=== PATIENT | female | born 1960 | race Caucasian/White ===

== ENCOUNTER 2023-03-10 12:48 | Emergency (ER) | payer BC, SELFPAY ==
[2023-03-10 12:52] VITALS: BP 135/77; PULSE 82; RESP 18; TEMP 37.3; O2SAT 95; BMI 26.6
--- NOTE | 2023-03-10 13:08 | ED_ITS ---
HPI - Abdominal Pain General Chief Complaint: Abdominal Pain Stated Complaint: Abdominal pain Time Seen by Provider: 03/10/23 12:49 History of Present Illness HPI narrative: 62-year-old female presents with some tightness across her abdomen. She started on early Saturday morning having some epigastric pain after pizza and beer. The patient reports that she felt upset her stomach. She had pain in her stomach. The pain in the stomach has slowly resolved but she has a tightness across her abdomen that is bothering her. Feels it is mostly around her umbilicus and to the right and left side. May have been a little bit higher in her mid epigastrium as well. Patient denies fever, denies jaundice, denies any prior symptoms similar. She has a history of reflux but that does not seem similar. She was on famotidine for period of time for that. No chest pain, no breathing difficulty, no fevers of significance. 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 Review of Systems Status of ROS Reports: 6 or more systems reviewed and unremarkable except as noted in History and below Narrative Patient does report that her urine has been darker than normal. PFSH PFSH Social History Smoking Status: Never smoker Do you use any of these nicotine containing products: None Second hand tobacco smoke exposure: No How often do you have a drink containing alcohol: 2-4 times a month How many standard drinks containing alcohol do you have on a typical day: 1 or 2 How often do you have six or more drinks on one occasion: Never AUDIT-C Alcohol total score: 2 Non-prescribed substance use: denies use service: No Exam Narrative: Exam Narrative: Objective: Patient's vital signs show temperature 99.2? otherwise unremarkable In general she is in no apparent distress, no scleral icterus, throat is clear Neck is supple Pulse regular Abdomen nontender no marked rebound or peritonitis she does have some very minimal right upper quadrant tenderness to palpation. No palpable mass. Extremities are no edema neurologic nonfocal Skin periphery is warm and dry. Const: Vital Signs, click to edit/add: Vital Signs - 24 hr 03/10/23 12:52 03/10/23 13:46 03/10/23 14:19 Temperature 99.2 F Pulse Rate 86 80 Pulse Rate [Pulse Oximeter] 82 Respiratory Rate 18 Blood Pressure [Ri ght Upper Arm] 135/77 Pulse Oximetry 95 96 96 Oxygen Delivery Me thod Room Air 03/10/23 14:30 Temperature Pulse Rate 80 Pulse Rate [Pulse Oximeter] Respiratory Rate Blood Pressure [Ri ght Upper Arm] Pulse Oximetry 95 Oxygen Delivery Me thod Course Vital Signs Vital signs: Initial Vital Signs Temperature 99.2 F 03/10/23 12:52 Temperature Source Temporal Artery Scan 03/10/23 12:52 Pulse Rate 82 03/10/23 12:52 Pulse Rhythm Regular 03/10/23 12:52 Respiratory Rate 18 03/10/23 12:52 Blood Pressure 135/77 03/10/23 12:52 Blood Pressure Mean 96 03/10/23 12:52 Blood Pressure Position Supine 03/10/23 12:52 Pulse Oximetry 95 03/10/23 12:52 Oxygen Delivery Method Room Air 03/10/23 12:52 Vital Signs Temperature 99.2 F 03/10/23 12:52 Pulse Rate 82 03/10/23 12:52 Respiratory Rate 18 03/10/23 12:52 Blood Pressure 135/77 03/10/23 12:52 Pulse Oximetry 95 03/10/23 12:52 Oxygen Delivery Method Room Air 03/10/23 12:52 Temperature 99.2 F 03/10/23 12:52 Pulse Rate 80 03/10/23 14:30 Respiratory Rate 18 03/10/23 12:52 Blood Pressure 135/77 03/10/23 12:52 Pulse Oximetry 95 03/10/23 14:30 Oxygen Delivery Method Room Air 03/10/23 12:52 Medications Administered Medications: Discontinued Medications Generic Name Dose Route Start Last Admin Trade Name Freq PRN Reason Stop Dose Admin Sodium Chloride 500 mls @ 500 mls/hr 03/10/23 12:55 03/10/23 14:30 0.9 % Sodium Chloride 500 Ml IV 03/10/23 13:54 Infused .Q1H ONE Infusion MDM - Abdominal Pain MDM Narrative Medical decision making narrative: 62-year-old female with couple day history of abdominal discomfort, now with abdominal tightness. Patient's symptoms seem very consistent with a biliary colic type situation, and I think an ultrasound of her right upper quadrant be appropriate she last ate at about 8 this morning. Will also check electrolytes labs liver function profile, give some IV fluid and disposition pending her findings above. If her white count would be normal and gallstones noted may need surgical consultation as an outpatient, if she has evidence of acute cholecystitis she may need more prompt attention. Disposition pending findings above. Will also for completeness get an EKG and a troponin. Her EKG by my read shows normal sinus rhythm no acute ST T wave changes. Addendum 2:23 p.m., patient's CRP is a little bit elevated at 4.3, her troponin is negative, urinalysis shows a few white cells and red cells but and a few bacteria, will wait for urine culture. Liver function profile was unremarkable, ER profile is unremarkable, total bili was a little elevated 1.9. Patient has a benign-appearing abdomen at this point I think simply observation be appropriate turgor certainly she could have passed a gallbladder stone or had some kid gallbladder sludge, I think more likely she had a little and intestinal colic. But I think at this point I would recommend observation. We discussed doing if further imaging such as CT scanning and we declined to do so given that she is improving and able to eat and drink well and seems to be getting better. She will follow-up with their changes or concerns would recommend she see her [facility] doctor the next 3-4 days for recheck. Lab Data Labs: Lab Results 03/10/23 03/10/23 03/10/23 Range/Units 13:10 13:39 13:51 WBC 4.74 (4.50-11.00) K/uL RBC 5.19 (4.00-5.20) m/uL Hgb 14.8 (12.0-16.0) gm/dL Hct 43.4 (33.0-51.0) % MCV 84 (80-100) fL MCH 29 (26-34) pg MCHC 34 (32-36) gm/dL RDW Coeff of [place] 11.9 (11.5-15.5) % Plt Count 231 (140-440) K/uL Neut % (Auto) 67.3 (42.0-72.0) % Lymph % (Auto) 26.4 (20-44) % Boyd % (Auto) 5.5 (0.0-11.0) % Eos % (Auto) 0.4 (0.0-7.0) % Baso % (Auto) 0.4 (0.0-3.0) % Neut # (Auto) 3.19 (1.7-7.0) K/uL Lymph # (Auto) 1.25 (0.90-2.90) K/uL Boyd # (Auto) 0.30 (0.00-0.90) K/UL Eos # (Auto) 0.02 (0.00-0.50) K/uL Baso # (Auto) 0.02 (0.00-0.30) K/uL Abs Immat Gran (auto) 0.00 (0.00-0.30) K/uL Imm/Tot Granulo (auto) 0.0 % Sodium 138 (135-149) mmol/L Potassium 3.6 (3.6-5.1) mmol/L Chloride 105 (96-114) mmol/L Carbon Dioxide 23 (20-32) mmol/L Anion Gap 10 (7-15) mEq/L BUN 15 (7-30) mg/dL Creatinine 0.6 (0.5-1.5) mg/dL Estimated Creat Clear 58.84 Estimated GFR 101 ml/min Glucose 110 (60-115) mg/dL Calcium 8.5 (8.4-10.6) mg/dL Total Bilirubin 1.9 H (0.1-1.5) mg/dL Direct Bilirubin 0.3 (0.0-0.5) mg/dL AST 35 (12-35) U/L ALT 20 (4-35) U/L Alkaline Phosphatase 64 (40-150) U/L Troponin I < 0.01 L (0.01-0.04) ng/mL C-Reactive Protein 4.3 H (0.5-1.0) mg/dL Total Protein 6.8 (6.0-8.3) g/dL Albumin 4.3 (3.3-5.0) g/dL Amylase 70 (18-89) U/L Urine Color Yellow (Yellow) Urine Appearance Clear (Clear) Urine pH 6.0 (5.0-8.5) Ur Specific [place] <= 1.005 (1.000-1.030) Urine Protein Negative (Negative) Urine Glucose (UA) Negative (Negative) Urine Ketones Negative (Negative) Urine Blood 2+ A (Negative) Urine Nitrite Negative (Negative) Urine Bilirubin Negative (Negative) Urine Urobilinogen 0.2 (0.2-1.0) Ur Leukocyte Esterase Negative (Negative) Urine RBC 0-2 (0-2) Urine WBC 0-2 (0-5) Urine WBC Clumps None (None) Ur Squamous Epith Cells Few (None-Few) Urine Bacteria Few A (None) Lab Acknowledgement Test Added Discharge Plan Discharge Clinical Impression: Abdominal pain Patient Disposition: Home w/ Parent or Adult Condition: Stable Additional Instructions: Observation, Tylenol as needed, recheck with regular doctor in 3-4 days, return to the ED if worsening or recurrence. Your ultrasound today look reassuring as did her lab studies. We will recheck these if there is problems or concerns we have continued problems return feel free to come back to the ER for re- evaluation. Activity Level: Light activity Discharge Diet: Full Liquid Diet Detail: Advance diet as tolerated to a low-fat diet Stand Alone Forms: [employer] Info Instructions
--- NOTE | 2023-03-10 13:09 | CRLHL7_ITS ---
For Patients: As a result of the Cures Act, medical imaging exams and procedure reports are released immediately into your electronic medical record. You may view this report before your referring provider. If you have questions, please contact your health care provider. INDICATION: Right upper quadrant pain and vomiting COMPARISON: None. TECHNIQUE: Bro-scale and color ultrasound of the right upper quadrant to include the liver, gallbladder (or gallbladder fossa), biliary tree, pancreatic head, and right kidney. FINDINGS: Liver: Increased hepatic echogenicity and coarsened echotexture. No mass. Gallbladder: Normal. Distention: Normal. Wall: Normal thickness. Stones: None. Sludge: None. Pericholecystic inflammation/fluid: None. Sonographic Polo`s sign: Negative. Bile ducts: Not dilated. The common bile duct measures 7 mm proximally and tapers to 5 mm. Pancreatic head: Normal. Right Kidney: Renal length: 11.2 cm Parenchyma: Normal thickness and normal echogenicity. Cyst: None Mass: None Calculi: None Urinary tract: Not dilated. RUQ Ascites: None. Aorta: No proximal aneurysm. IMPRESSION: Hepatic steatosis. Dictated by Trish Dias MD @ 03/10/2023 2:57:40 PM (Electronically Signed)
[2023-03-10] MEDS: 0.9 % SODIUM CHLORIDE 500 ML 500 ML IV (13:20)
[2023-03-10 13:22] LABS: Basophils Absolute Auto 0.02 K/uL (0.00-0.30); Basophils Percent Auto 0.4 % (0.0-3.0); Eosinophils Absolute Auto 0.02 K/uL (0.00-0.50); Eosinophils Percent Auto 0.4 % (0.0-7.0); Hematocrit 43.4 % (33.0-51.0); Hemoglobin* 14.8 gm/dL (12.0-16.0); Lymphocytes Absolute Auto 1.25 K/uL (0.90-2.90); Lymphocytes Percent Auto 26.4 % (20-44); Mean Corpuscular HGB Conc 34 gm/dL (32-36); Mean Corpuscular Hemoglobin 29 pg (26-34); Mean Corpuscular Volume 84 fL (80-100); Monocytes Percent Auto 5.5 % (0.0-11.0); Neutrophils Absolute Auto 3.19 K/uL (1.7-7.0); Neutrophils Percent Auto 67.3 % (42.0-72.0); Platelet Count* 231 K/uL (140-440); RDW Coefficient of Variation % 11.9 % (11.5-15.5); Red Blood Count 5.19 m/uL (4.00-5.20); White Blood Count* 4.74 K/uL (4.50-11.00)
[2023-03-10 13:23] LABS: Slide Review Reflex No
[2023-03-10 13:35] LABS: Albumin* 4.3 g/dL (3.3-5.0); Chloride* 105 mmol/L (96-114); Sodium* 138 mmol/L (135-149)
[2023-03-10 13:36] LABS: Potassium* 3.6 mmol/L (3.6-5.1)
[2023-03-10 13:37] LABS: Amylase* 70 U/L (18-89); Creatinine* 0.6 mg/dL (0.5-1.5); Est. Creatinine Clearance* 58.84; Estimated Glomerular Filt Rate 101 ml/min
[2023-03-10 13:38] LABS: Anion Gap 10 mEq/L (7-15); Aspartate Amino Transferase* 35 U/L (12-35); Bilirubin Direct* 0.3 mg/dL (0.0-0.5); Bilirubin Total* 1.9 mg/dL (0.1-1.5); Blood Urea Nitrogen* 15 mg/dL (7-30); Carbon Dioxide* 23 mmol/L (20-32); Total Protein* 6.8 g/dL (6.0-8.3)
[2023-03-10 13:39] LABS: Alanine Aminotransferase* 20 U/L (4-35); Alkaline Phosphatase* 64 U/L (40-150); Calcium* 8.5 mg/dL (8.4-10.6); Glucose* 110 mg/dL (60-115)
[2023-03-10 13:41] LABS: C Reactive Protein* 4.3 mg/dL (0.5-1.0)
[2023-03-10 13:46] VITALS: PULSE 86; O2SAT 96
[2023-03-10 13:59] LABS: Troponin I* < 0.01 ng/mL (0.01-0.04)
[2023-03-10 14:07] LABS: Appearance Urine Clear (Clear); Bilirubin Urine Negative (Negative); Blood Urine 2+ (Negative); Color Urine Yellow (Yellow); Glucose Urine Negative (Negative); Ketones Urine Negative (Negative); Leukocyte Esterase Urine Negative (Negative); Nitrite Urine Negative (Negative); Protein Urine Negative (Negative); Specific Gravity Urine <= 1.005 (1.000-1.030); Urobilinogen Urine 0.2 (0.2-1.0)
[2023-03-10 14:19] VITALS: PULSE 80; O2SAT 96
[2023-03-10 14:19] LABS: RBC Urine 0-2 (0-2); Squamous Epithelial Cell Urine Few (None-Few); WBC Urine 0-2 (0-5)
[2023-03-10 14:20] LABS: Bacteria Urine Few
[2023-03-10 14:30] VITALS: PULSE 80; O2SAT 95
== END 2023-03-10 14:42 | disposition home or self-care (01) ==
PROVIDERS: Emergency Provider Family Medicine; PCP Family Medicine
DX: R10.9 Unspecified abdominal pain (principal)
CPT/HCPCS: 36415; 76705; 80048; 80076; 81001; 82150; 84484; 85025; 86140; 87086; 93005; 96360; 99284; J7030

== ENCOUNTER 2024-12-13 18:07 | Emergency (ER) | payer OTHER, SELFPAY ==
--- OUTSIDE RECORDS SUMMARY | 2024-11-09 08:40 | XMS_ITS | Encounter Summary ---
Author Organization [facility] Address [address] [place] [address] Care Team Providers Care [employer] Academic Coach Name Role Phone Toy Rodriguez M.D. Primary Care Provider Reason for Referral * Outpatient (Routine) - Closed Specialty Diagnoses / Procedures Referred By Charlotte t Referred To Contact Otorhinolaryngology Diagnoses Eustachian Tube Disorder Right Toy Rodriguez M.D. [address] [place] [phone] Phone: tel: fax: [facility] Referral ID Status Reason Start Date Expiration Date V isits Requested Visits Authorized [id number] Closed Specialty Services Required 11/09/2024 05/11/2026 1 1 Reason for Visit * Reason Comments Other Check right ear. Ear fills full and itches. Has been going on for a while.Has used Flonase and is currently on Prednisone. Referral to ENT. Encounter Details Date Type Department Care Team (Late st Contact Info) Description 11/09/2024 8:40 AM CDT Office Visit Department of Family Medicine, [facility], in [place], [place] [address] [place] [phone] Toy Rodriguez M.D. [address] [place] [address] Eustachian Tube Disorder Right (Primary Dx); Hypertension Essential Primary; Maintenance Health Adult Social History Tobacco Use Types Packs/Day Years Used Date Smoking Tobacco: Never Smokeless Tobacco: Never Tobacco Cessation:Counseling Given: Not Answered Alcohol Use Standard Drinks/Week Comments Yes 0 (1 standard drink = 0.6 oz pur e alcohol) Very little [facility] Utilities Answer Date Recorded In the past 12 months has e electric, gas, oil, or water company threatened to shut off services in your home? No 06/16/2024 Hunger Vital Sign Answer Date Recorded Within the past 12 months, y ou worried that your food would run out before you got the money to buy more. Never true 06/17/19 25 Within the past 12 months, t he food you bought just didn't last and you didn't have money to get more. Never true 06/16/2024 PRAPARE - Transportation Answer Date Re corded In the past 12 months, has l ack of transportation kept you from medical appointments or from getting medications? No 05/20 In the past 12 months, has l ack of transportation kept you from meetings, work, or from getting things needed for daily living? No 06/16/2024 Depression Answer Date Recor ded PHQ-9 Total Score (max 27) 2 09/07 Housing Stability Answer Date Recorded What is your living situation today? 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 - 11/09/2024 8:40 AM CDT DATE OF VISIT: 11/09/2024 SUBJECTIVE CHIEF COMPLAINT / REASON FOR VISIT Evita Johnson is a 63 y.o. female who presents for evaluation of Other (Check right ear. Ear fills full and itches. Has been going on for a while.Has used Flonase and is currently on Prednisone. Referral to ENT.). The patient verbally consented to an audio recording of their visit to assist with the completion of documentation. 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 Right ear fullness and hearing changes - Intermittent fullness in the right ear for approximately one year - No associated pain - Occasional itchiness in the right ear - Slight decrease in hearing on the right side, uncertain about the extent - Symptoms fluctuate, with episodes coming and going over the past couple of months - No sinus headache or pressure - No pain associated with the ear fullness Response to symptomatic treatments - Flonase and antihistamines, including Sudafed, used for symptom management - Perception that Sudafed may have worsened symptoms - Recent course of prednisone prescribed at urgent care, taken for the past few days - Some improvement in pressure and itchiness with prednisone, but persistent fullness Hypertension and antihypertensive medication intolerance - Hypertension managed with hydrochlorothiazide - Missed hydrochlorothiazide dose the previous day due to travel - Previous adverse reaction to amlodipine, causing significant fatigue OBJECTIVE VITAL SIGNS BP 142/83 (BP Location: Right arm, Patient Position: Sitting, Cuff Size: Regular) Pulse 69 Temp36 ??C (Temporal) Resp 16 Physical Exam Constitutional Appearance: She is well-developed. HENT Head: Normocephalic and atraumatic. Right Ear: External ear normal. Left Ear: External ear normal. Ears: Comments: Moderate fluids on the left ear. Small to moderate fluids on the right ear Nose: Nose normal. Eyes Conjunctiva/sclera: Conjunctivae normal. Pupils: Pupils are equal, round, and reactive to light. Cardiovascular Rate and Rhythm: Normal rate and regular rhythm. Heart sounds: Normal heart sounds. Pulmonary Effort: Pulmonary effort is normal. No respiratory distress. Breath sounds: Normal breath sounds. Abdominal General: Bowel sounds are normal. There is no distension. Palpations: Abdomen is soft. There is no mass. Tenderness: There is no abdominal tenderness. There is no guarding. Musculoskeletal General: Normal range of motion. Cervical back: Normal range of motion and neck supple. Skin General: Skin is warm and dry. Neurological Mental Status: She is alert and oriented to person, place, and time. Deep Tendon Reflexes: Reflexes are normal and symmetric. Psychiatric Behavior: Behavior normal. ASSESSMENT/ PLAN Eustachian Tube Disorder Right Orders: [facility] Otorhinolaryngology - General consult (clinic); Future Audiology evaluation; Future Intermittent fullness in the right ear for approximately one year, occasionally affecting the left ear. Symptoms include fullness, itchiness, and mild hearing issues without pain. Persistent symptomsdespite antihistamines, Flonase, and Sudafed. Prednisone provides some relief for pressure and itchiness, but fullness persists. Examination reveals fluid in both ears, more in the left ear, despite the right ear being symptomatic. Likely allergy-related. Fluid resolution may take up to three months, requiring aggressive management. - Increase Flonase to twice daily. - Start Claritin once daily, increase to twice daily if needed. - Continue Sudafed if tolerated, discontinue if it causes irritation. - Order ENT referral for further evaluation and potential fluid drainage. - Recommend normal saline nasal spray and use of a humidifier at home. - Order audiology evaluation to assess hearing and fluid status. Hypertension Essential Primary Hypertension managed with hydrochlorothiazide. She did not take hydrochlorothiazide the previous day due to travel and concerns about frequent urination. Amlodipine was previously prescribed but discontinued due to fatigue and tiredness. Experiencing stress from work responsibilities, potentially im pacting blood pressure control. - Continue hydrochlorothiazide as prescribed. - Add amlodipine to allergy list due to adverse reaction of fatigue and tiredness. - Monitor blood pressure regularly. [facility] Adult Flu shot was given today documented in this encounter Plan of Treatment Upcoming Encounters Date Type Department Care Team (Late st Contact Info) Description 12/14/2024 1:00 PM CDT Appointment Department of Radiology in [place], [place] [address] [place] [phone] Mare Ferrara P.A.-C. 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 [address], [place] [phone] Scheduled Orders Name Type Priority Associated Diagnoses Orde r Schedule Audiology evaluation Audiology Routine Eustachian Tube Disorder Right Expected: 11/09/2024, Expires: 02/08/2026 Scheduled Referrals Name Type Priority Associated Diagnoses Order Schedule [facility] Otorhinolaryngology - General consult (clinic) Outpatient Referral Routine Eustachian Tube Disorder Right Expected: 11/09/2024, Expires: 02/08/2026 documented as of this encounter Visit Diagnoses Diagnosis Eustachian Tube Disorder Right- Primary Hypertension Essential Primary Maintenance Health Adult documented in this encounter Additional Health Concerns Assessment Noted Time PHQ-9 Depression Total Score: 2 09/08/19 25 8:38 AM CDT documented as of this encounter Care Teams [employer] Academic [employer] Relationship Specialty Start Date End Date Toy Rodriguez M.D. NPKaleigh: [phone] [address] [place] [phone] PCP - General Family Medicine 06/10/24 documented as of this encounter
--- OUTSIDE RECORDS SUMMARY | 2024-11-30 15:00 | XMS_ITS | Encounter Summary ---
Author Organization [facility] Address [address] [place] [address] Care Team Providers Care Partner Integration Planner Name Role Phone Toy Rodriguez M.D. Primary Care Provider [phone] Reason for Referral * Outpatient (Routine) - Authorized Specialty Diagnoses / Procedures Referred By Contac t Referred To Contact Otorhinolaryngology Mare Ferrara P.A.-C. [address] [place] [phone] Phone: tel: fax: [facility] Region Referral ID Status Reason Start Date Expiration Date V isits Requested Visits Authorized [id number] Authorized 11/30/2024 06/01/2026 1 1 Scheduling Instructions Please schedule in [place] AFTER CT completed- scope and review CT * MRI/CAT/PET Scan (Routine) - Authorized Specialty Diagnoses / Procedures Referred By Contac t Referred To Contact Radiology Diagnoses Obstruction Nasal Dysfunction Eustachian Tube Right Procedures CT Sinuses without IV Contrast Mare Ferrara P.A.-C. [address] [place] [phone] Phone: tel: fax: [facility] Region Referral ID Status Reason Start Date Expiration Date V isits Requested Visits Authorized [id number] Authorized 11/30/2024 03/02/2026 1 1 Reason for Visit * Reason Comments Advice Only * Outpatient (Routine) - Closed Specialty Diagnoses / Procedures Referred By Charlotte hoover Referred To Contact Otorhinolaryngology Diagnoses Eustachian Tube Disorder Right Toy Rodriguez M.D. [address] [place] [address] Phone: tel: fax: [facility] Region Referral ID Status Reason Start Date Expiration Date V isits Requested Visits Authorized [id number] Closed Specialty Services Required 11/09/2024 05/11/2026 1 1 Encounter Details Date Type Department Care Team (Latest Contact Info) Description 11/30/2024 3:00 PM CDT Comprehensive Visit Department of Otorhinolaryngology in [place], [place] [address] [place] [address] Mare Ferrara P.A.-C. [address] [place] [phone] Obstruction Nasal (Primary Dx); Dysfunction Eustachian Tube Right; Dysphonia; Snoring; Rhinitis Allergic Social History Tobacco Use Types Packs/Day Years Used Date Smoking Tobacco: Never Smokeless Tobacco: Never Alcohol Use Standard Drinks/Week Comments Yes 0 (1 standard drink = 0.6 oz pur e alcohol) Very little [facility] Utilities Answer Date Recorded In the past 12 months has e [email or web address], gas, oil, or water [employer] threatened to shut off services in your [...] your living situation today? 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 - 11/30/2024 3:00 PM CDT SUBJECTIVE CHIEF COMPLAINT/REASON FOR VISIT Fzobk-enrnlfh-ndqw-left ear plugging and fullness, nasal and throat symptoms as well REFERRING PROVIDER Toy Rodriguez M.D. HISTORY OF PRESENT ILLNESS Evita Johnson is seen today in consultation for evaluation of her ears. Since approximately December of 2023 she has had intermittent fullness and a plugging sensation or pressure in the right ear. At times this is present in the left but the right is typically the most bothersome side. She declines actual ear pain or otorrhea but often feels as if there is fluid in the middle ear that needs to be released or drained. If she performs Valsalva type maneuvers or yawns it will temporarilybut not completely improve her right ear symptoms. It has been increasing in the last month or 2. She has been utilizing Flonase regularly for a month, also utilizes oral antihistamine daily and Sudafed prn. These slightly improvement never resolve her symptoms. She has seen an repair armature winder in the past and recalls testing positive to environmental allergens including dust and mold. She feels over the last year, especially over the last couple months, her chronic nasal obstruction and congestion has also increased. Her snoring is increased in she wonders if she may have obstructive sleep apnea. She has gained some weight in his attempting to lose weight in order to improve her quality of sleep.No history of surgery to the ears, nose, or sinuses. 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 Her thyroid hormone levels have since been followed and have been regulated. The following portions of the patient's history were reviewed: allergies, current medications, problem list, family history, medical history, social history and surgical history OBJECTIVE PHYSICAL EXAMINATION GENERAL: Patient is alert, oriented, and in no acute distress. Respirations are quiet and unlabored. Vocal quality is normal. HEAD: Normocephalic and atraumatic. Skin on head and neck normal. EARS: External ears normal bilaterally. External ear canals normal bilaterally. Tympanic membranes are normal bilaterally with clear middle ears. NOSE: External nasal exam normal. Intranasal exam reveals midline septum. No polyps or drainage or observed, she does have turbinate hypertrophy of inferior turbinates bilaterally. [facility] or [facility]oscopy is not available today. ORAL: Oral cavity, including tongue and floor of mouth, is without lesions. She has large base of tongue and low hanging flaccid soft palate slightly narrowing the oropharyngeal airway. OROPHARYNX: Tonsils are surgically absent. NASOPHARYNX: Normal. NECK: Palpation of neck reveals no cervical adenopathy. She does have some asymmetry of the scar tissue from her thyroid surgery. ASSESSMENT / PLAN #1 Obstruction Nasal #2 Dysfunction Eustachian Tube Right #3 Dysphonia #4 Snoring #5 Rhinitis Allergic We discussed involved anatomy and findings. At this point we are going to proceed with a sinus CT and she will follow up with me in the [place] office thereafter to review the CT and undergo nasal endoscopy and laryngoscopy. We will then come up with a plan. She can continue on her current medications in the meantime but I will not add on anything new at this time. She is in agreement with this plan. Mare Ferrara P.A.-C. documented in this encounter Plan of Treatment Upcoming Encounters Date Type Department Care Team (Late st Contact Info) Description 12/14/2024 1:00 PM CDT Appointment Department of Radiology in [place], [place] [address] [place] [phone] Mare Ferrara P.A.-C. [address] [place] [phone] 12/28/2024 1:30 PM OVERHEAD FOREMAN Office Visit Department of Otorhinolaryngology in [place], [place] [address] [place] [address] Mare Ferrara P.A.-C. [address] [place] [phone] Scheduled Orders Name Type Priority Associated Diagnoses Orde r Schedule CT Sinuses without IV Contrast Imaging RAD - Routine (most inpatients and all outpatients) Obstruction Nasal Dysfunction Eustachian Tube Right Expected: 11/30/2024, Expires: 03/02/2026 Scheduled Referrals Name Type Priority Associated Diagnoses Order Schedule Otorhinolaryngology office visit (clinic) Outpatient Referral Routine Expected: 11/30/2024, Expires: 03/02/2026 documented as of this encounter Visit Diagnoses Diagnosis Obstruction Nasal- Primary Dysfunction Eustachian Tube Right Dysphonia Snoring Rhinitis Allergic documented in this encounter Additional Health Concerns Assessment Noted Time PHQ-9 Depression Total Score: 2 09/08/19 25 8:38 AM CDT documented as of this encounter Care Teams Partner Integration Planner Relationship Specialty Start Date End Date Toy Rodriguez M.D. [address] [place] [phone] PCP - General Family Medicine 06/10/24 documented as of this encounter
--- OUTSIDE RECORDS SUMMARY | 2024-12-13 18:09 | XMS_ITS | Clinical Summary ---
Author Organization [facility] Address [address] [place] [address] Care Team Providers Care Sample Hand Name Role Phone Toy Rodriguez M.D. Primary Care Provider [phone] Source Comments Patient records contain information from all sites at [facility]. For routine questions regarding patient records, call [phone] during business hours, M-F 8:00 AM - 5:00 PM Central Time. Record requests for emergency care only can be directed to [phone] at any time.[facility] Allergies Active Allergy Reactions Criticality Noted Date Comments Amlodipine Other (see comments) 11/09/2024 Fatigue Medications * This document contains information received from the source organization and may not represent a complete record from that organization. hydroCHLOROthia zide (HydroDiuril) 25 mg tablet Take 1 tablet (25 mg total) by mouth daily. 90 tablet 3 11/13/2024 9:32 AM CDT 5 Active levothyroxine 112 mcg tablet Take 1 tablet (112 mcg total) by mouth daily before morning meal. 90 tablet 3 11/13/2024 9:32 AM CDT 5 Active citalopram (CeleXA) 20 mg tablet Take 1 and one-half tablet by mouth every morning. 135 tablet 3 11/13/2024 9:32 AM CDT 5 Active cholecalciferol (Vitamin D3) 125 mcg (5,000 Unit) capsule Take 1 capsule by mouth daily. 4 Active omega-3 fatty acids-fish oil 300-1,000 mg per capsule Take 1 capsule by mouth daily. 4 Active famotidine (Pepcid) 20 mg tablet Take 1 tablet (20 mg total) by mouth 2 (two) times a day. 60 tablet 3 09/17/2024 1:23 PM CDT 5 Active fluticasone propionate (Flonase) 50 mcg/actuation nasal spray Administer 2 sprays into each nostril 2 (two) times a day. 16 g 11 11/13/2024 9:32 AM CDT 5 Active loratadine (Claritin) 10 mg tablet Take 1 tablet (10 mg total) by mouth daily as needed for allergies. 90 tablet 3 5 Active Encounters * This document contains information received from the source organization and may not represent a complete record from that organization. Date Type Department Care Team Description 11/30/2024 3:00 PM CDT Comprehensive Visit Department of Otorhinolaryngology in [address] [phone] Mare Ferrara P.A.-C. Obstruction Nasal (Primary Dx); Dysfunction Eustachian Tube Right; Dysphonia; Snoring; Rhinitis Allergic 11/09/2024 8:40 AM CDT Office Visit Department of Family Medicine, [facility], in [address] [phone] Toy Rodriguez M.D. Eustachian Tube Disorder Right (Primary Dx); Hypertension Essential Primary; Maintenance Health Adult 10/02/2024 Results Follow-Up Department of Family Medicine, [facility], in [address] [phone] Toy Rodriguez M.D. S-TSH (Thyroid-Stimulat ing Hormone - Sensitive), Basic Metabolic Panel, Glucose, Fasting, Lipid Panel 09/25/2024 3:33 PM CDT - 09/25/2024 11:59 PM CDT Hospital Encounter Department of Laboratory Medicine in [address] [phone] Toy Rodriguez M.D. Hypothyroidism; Hypertension Essential Primary; Maintenance Health Adult; Hyperlipidemia Discharge Disposition: Home or Self Care 09/25/2024 3:30 PM CDT Nurse Only Department of [facility], [facility], in [address] [phone] Toy Rodriguez M.D. Van Esch, Norma K, L.P.NShayla Nurse Visit (Blood pressure check) 09/25/2024 3:19 PM CDT - 09/25/2024 3:32 PM CDT Hospital Encounter Department of Laboratory Medicine in [address] [phone] Toy Rodriguez M.D. High Risk Medication Discharge Disposition: Home or Self Care 09/25/2024 Results Follow-Up Department of [facility], [facility], in [address] [phone] Toy Rodriguez M.D. ECG 12 Lead 09/25/2024 Clinical Communication Department of [facility], [facility], in [address] [phone] Toy Rodriguez M.D. from Last 3 Months Immunizations Immunization Administration Dates Next Due DTaP (Infanrix, [employer]edia) 04/14/2008 HepB Pediatric/Adolescent 04/09/2005,03/23/2004, 01/29/2003 HepB, Unspecified 04/09/2005,03/23/2004,01/30/20 03 Influenza, Injectable, Quadrivalent 10/19,11/13/2018,11/28/2017,2016,12/08/2014 Influenza, Seasonal, Injectable 12/06/2013,12/03,01/25/2012 PCV20 06/22/2024 RZV (SHINGRIX) 05/09/2018,05/09/2018,01/28/2018 Td Preservative Free (TENIVA C, DECAVAC) 02/18/1997 Tdap 08/25/2018,04/14/2008 influenza trivalent vaccine (6 months and older)(PF) 11/08/2023 influenza vaccine quad (FLUZONE/FLUARIX) (6 months and older)(PF) 11/15/2022,12/21/2021,12/01/2020,2019,12/19/2016,12/01/2015 Social History Tobacco Use Types Packs/Day Years Used Date Smoking Tobacco: Never Smokeless Tobacco: Never Tobacco Cessation:Counseling Given: Not Answered Alcohol Use Standard Drinks/Week Comments Yes 0 (1 standard drink = 0.6 oz pur e alcohol) Very little [facility] Utilities Answer Date Recorded In the past 12 months has e electric, gas, oil, or water company threatened to shut off services in your home? No 06/16/2024 Hunger Vital Sign Answer Date Recorded Within the past 12 months, y ou worried that your food would run out before you got the money to buy more. Never true 06/17/19 Within the past 12 months, t he [...] your living situation today? 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 Gender Identity Female 11/07/2021 3:35 PM CDT Sexual Orientation Straight 11/07/2021 3: 38 PM CDT Last Filed Vital Signs Vital Sign Reading Time Taken Comments Blood Pressure 142/83 11/09/2024 8:47 AM CDT Pulse 69 11/09/2024 8:47 AM CDT Temperature 36 C (96.8 F) 11/09/2024 8:42 AM CDT Respiratory Rate 16 11/09/2024 8:42 AM CDT Oxygen Saturation - - Inhaled Oxygen Concentration - - Weight 90.4 kg (199 lb 3 oz) 09/07/2024 8:17 AM CDT Height 171.1 cm (5' 7.36) 06/22/2024 7:24 AM CD T Body Mass Index 30.86 06/22/2024 7:24 AM CDT Plan of Treatment Upcoming Encounters Date Type Department Care Team (Late st Contact Info) Description 12/14/2024 1:00 PM CDT Appointment Department of Radiology in [place], [place] [address] [phone] Mare Ferrara P.A.-C. [address] [phone] 12/28/2024 1:30 PM STAFF PSYCHOLOGIST Office Visit Department of Otorhinolaryngology in [place] [address] [place] [phone] Mare Ferrara P.A.-CShayla [address] [place] [phone] Health Maintenance Due Date Last Done Comments CT Colonography 1960 Colonoscopy 1960 FIT 1960 Hepatitis C Screening 1960 COVID-19 Vaccine ( season) 2024 11/08/2023, 12/14/2022, 01/03/2022, Additional history exists Influenza Vaccine (#1) 2024 , 11/15/2022, 12/21/2021, Additional history exists Office Visit for Blood Pressure Check / Re-check 02/08/2025 11/09/2024 Mammogram 05/25/2025 05/25/2024, 03/21, 04/03/2023, Additional history exists Thyroid Stimulating Hormone (TSH) test for thyroid function 09/25/2025 09/25/2024, 09/30/2023, 07/22/2023, Additional history exists Cologuard 10/19/2025 10/19/2022 Colorectal Cancer Screening 10/19/2025 Cervical/Vaginal Cancer Screening 01/09/2027 01/09/2022 (Performed elsewhere) Fasting Glucose for Diabetes Screening 09/26/2027 09/25/2024, 10/02/2023, 07/22/2023, Additional history exists DTaP,Tdap,and Td Vaccines (4 - Td or Tdap) 08/25/2028 08/25/2018, 04/14/2008, 04/14/2008, Additional history exists Lipid (Cholesterol) Screening 09/25/2029 09/25/2024, 10/02/2023, 02/15/2023, Additional history exists Hepatitis B Vaccines Completed 04/09/2005, 04/09/2005, 03/23/2004, Additional history exists Zoster Vaccines Completed 05/09/2018, 04/19, 01/28/2018 Pneumococcal vaccine (50+ years) Completed 06/22/2024 Depression Screening (Annual PHQ-2) Completed 09/07/2024, 06/22/2024 IPV Vaccines Aged Out No longer eligi ble based on patient's age to complete this topic Procedures Procedure Name Priority Date/Time Associated Diagnosis Comments LIPID PANEL, S Routine 09/25/2024 3:37 PM CDT Hyperlipidemia GLUCOSE, FASTING, S/P Routine 09/25/2024 3:37 PM CDT Maintenance Health Adult BASIC METABOLIC PANEL, S/P Routine 09/25/2024 3:37 PM CDT Hypertension Essential Primary THYROID-STIMULATING HORMONE-SENSITIVE (S-TSH) Routine 09/25/2024 3:37 PM CDT Hypothyroidism ECG Routine 09/25/2024 3:30 PM CDT High Risk Medication BI BREAST SCREENING BILATERAL WITH TOMOSYNTHESIS RAD - Routine (most inpatients and all outpatients) 05/25/2024 3:10 PM CDT Screening Mammogram Breast Cancer from Last 3 Months or Most Recently Relevant to Health Maintenance Results * (ABNORMAL) Lipid Panel (09/25/2024 3:37 PM CDT) Triglycerides 176(H) mg/dL 09/25/2024 6:13 PM CDT OWAT Comment: ----REFERENCE VALUE---- Normal: <150 mg/dL Borderline High: 150-199 mg/dL High: 200-499 mg/dL Very High: > or =500 mg/dL Cholesterol, Total 227(H) mg/dL 2024 6:13 PM CDT OWAT Comment: ----REFERENCE VALUE---- Desirable: < 200 mg/dL Borderline High: 200 - 239 mg/dL High: > or = 240 mg/dL Cholesterol, LDL, Calculated 151(H) mg/dL 09/25/2024 6:13 PM CDT OWAT Comment: ----REFERENCE VALUE---- Desirable: <100 mg/dL Above Desirable: 100-129 mg/dL Borderline High: 130-159 mg/dL High: 160-189 mg/dL Very High: >=190 mg/dL ----ADDITIONAL INFORMATION---- LDL cholesterol calculated using the Mccollum/NIH equation. Cholesterol, HDL 44(L) >=50 mg/dL 09/26/19 25 6:13 PM CDT OWAT Cholesterol, Non-HDL, Calculated 183(H) mg/dL 09/25/2024 6:13 PM CDT OWAT Comment: ----REFERENCE VALUE---- Desirable: <130 mg/dL Above Desirable: 130-159 mg/dL Borderline High: 160-189 mg/dL High: 190-219 mg/dL Very High: > or =220 mg/dL Fasting (8 HR or more) No 09/25/2024 3:37 PM CDT OWAT Blood (Blood, Venous) 09/25/2024 3:37 PM CDT 09/25/2024 5:47 PM CDT Toy Rodriguez M.D. LAB BLOOD ADD-ON Final Resul t [facility] [address] [place] [address], [facility] in [place] [address] [place] [address] * S-TSH (Thyroid-Stimulating Hormone - Sensitive) (09/25/2024 3:37 PM CDT) TSH, Sensitive 2.0 0.3 - 4.2 mIU/L 09/25/2024 6:14 PM CDT OWAT Blood (Blood, Venous) 09/25/2024 3:37 PM CDT 09/25/2024 5:47 PM CDT us Toy Rodriguez M.D. LAB BLOOD ADD-ON Final Resul t Performing Organization Address City/[facility]/ZIP Co de Phone Number [facility] [address] [place] [address], [place] [facility] in [place] [address] [place] [address] * Glucose, Fasting (09/25/2024 3:37 PM CDT) Glucose, P 84 70 - 100 mg/dL 09/25/2024 6:12 PM CDT OWAT Blood (Blood, Venous) 09/25/2024 3:37 PM CDT 09/25/2024 5:47 PM CDT us Toy Rodriguez M.D. LAB BLOOD NON ADD-ON Final R esult [facility] [address] [place] [address], [facility] in [place] [address] [place] [address] * Basic Metabolic Panel (09/25/2024 3:37 PM CDT) Potassium, P 4.0 3.6 - 5.2 mmol/L 09/25/2024 6:13 PM CDT OWAT Sodium, P 141 135 - 145 mmol/L 09/25/2024 6:13 PM CDT OWAT Chloride, P 102 98 - 107 mmol/L 09/25/2024 6:13 PM CDT OWAT Bicarbonate, P 27 22 - 29 mmol/L 09/25/2024 6:13 PM CDT OWAT Anion Gap, P 12 7 - 15 09/25/2024 6:13 PM CDT OWAT BUN (Blood Urea Nitrogen), P 12 6 - 21 mg/dL 09/25/2024 6:13 PM CDT OWAT Creatinine 0.80 0.59 - 1.04 mg/dL 09/25/2024 6:13 PM CDT OWAT Estimated GFR (eGFR) 83 >=60 mL/min/BSA 09/25/2024 6:13 PM CDT OWAT Comment: Estimated GFR calculated using the 2020 CKD_EPI creatinine equation. Calcium, Total, P 9.6 8.8 - 10.2 mg/dL 09/25/2024 6:13 PM CDT OWAT Glucose, P CANCELED mg/dL 09/25/2024 5:48 PM CDT OWAT Comment: Duplicate test request. Result canceled by the ancillary. Blood (Blood, Venous) 09/25/2024 3:37 PM CDT 09/25/2024 5:47 PM CDT us Toy Rodriguez M.D. LAB BLOOD ADD-ON Final Resul t [facility] [address] [place] [address], [place] OWAT [facility] in [place] [address] [place] [address] * ECG 12 Lead (09/25/2024 3:30 PM CDT) Ventricular Rate ECG/Min 64 BPM MUSE TX Interval 182 ms MUSE QRSD Interval 92 ms MUSE QT Interval 430 ms MUSE QTC Interval 443 ms MUSE P [place] 57 degrees MUSE R [place] 11 degrees MUSE T Wave [place] 13 degrees MUSE 09/25/2024 3:30 PM CDT 09/25/2024 3:33 PM CDT Impressions MUSE - 09/25/2024 3:33 PM CDT Normal sinus rhythm Slight ST elevation in Septal leads When compared with ECG of 22-Jun-2024 08:25, No significant change in data has occurred Reviewed by RENATO Ng Narrative Procedure Note Joe Oliveira M.D., Ph.D. - 09/25/2024 IMPRESSION: Normal sinus rhythm Slight ST elevation in Septal leads When compared with ECG of 22-Jun-2024 08:25, No significant change in data has occurred Reviewed by RENATO Ng us Toy Rodriguez M.D. ECG ORDERABLES Final Result MUSE NA * BI Breast Screening Bilateral with Tomosynthesis (05/25/2024 3:10 PM CDT) Anatomical Region Laterality Modality Breast, Breast Imaging RST L OS, Breast Imaging ARZ LOS, Breast Imaging FLA LOS Bilateral Mammography Addenda Addendum by Edwin Maldonado M.D. on 05/26/2024 12:49 PM CDT ADDENDUM: AMENDMENT TO ADD COMPARISON EXAMS COMPARISON EXAMS: Bilateral screening mammograms dating back to 01/28/2017 FINDINGS: When compared to prior exams, no suspicious findings are evident. RECOMMENDATIONS: Annual Screening Mammogram ASSESSMENT: BI-RADS: 1: Negative. Impressions 05/26/2024 11:22 AM CDT Incomplete. Comparison images needed. RECOMMENDATION: Comparison With Prior Exam(s) Comparison with prior mammograms is requested and will be arranged by the Department of Radiology. If prior mammograms cannot be obtained, annual mammography is recommended. ASSESSMENT: BI-RADS: 0 - Incomplete: Need Prior Mammograms for Comparison. Narrative 05/26/2024 11:22 AM CDT EXAM: BI BREAST SCREENING BILATERAL WITH TOMOSYNTHESIS Current study was evaluated with a Computer Aided Detection (CAD) system. INDICATION: Screening mammogram. COMPARISON: No prior exams were available for comparison. DENSITY: b. There are scattered areas of fibroglandular density. FINDINGS: No mammographic findings of malignancy. However, comparison with prior exams would be helpful for interpretation. Procedure Note Edwin Maldonado M.D. - 05/26/2024 EXAM: BI BREAST SCREENING BILATERAL WITH TOMOSYNTHESIS Current study was evaluated with a Computer Aided Detection (CAD) system. INDICATION: Screening mammogram. COMPARISON: No prior exams were available for comparison. DENSITY: b. There are scattered areas of fibroglandular density. FINDINGS: No mammographic findings of malignancy. However, comparisonwith prior exams would be helpful for interpretation. IMPRESSION: Incomplete. Comparison images needed. RECOMMENDATION: Comparison With Prior Exam(s) Comparison with prior mammograms is requested and will be arranged by theDepartment of Radiology. If prior mammograms cannot be obtained, annualmammography is recommended. ASSESSMENT: BI-RADS: 0 - Incomplete: Need Prior Mammograms forComparison. Bonnie Kidd M.D. IM BI PROCEDURES Edite d Result - Final from Last 3 Months or Most Recently Relevant to Health Maintenance Insurance [facility] Care Teams Sample Hand Relationship Specialty Start Date End Date Toy Rodriguez M.D. [address] [place] [phone] PCP - General Family Medicine 06/10/24
--- OUTSIDE RECORDS SUMMARY | 2024-12-13 18:10 | XMS_ITS | Clinical Summary ---
Author Organization [facility] Address [address] [place] [id number] Care Team Providers Care Door Builder Name Role Phone Michael Toy Brooks [facility] [place] Care Provider Allergies No known active allergies Medications fluticasone (50 mcg per actuation) nasal solution (FLONASE)Indicat ions:Nasal congestion Inhale 2 Sprays to both nostrils once daily. Taking PRN 3 Active miscellaneous medical supply (Blood Pressure Cuff) miscIndications: HTN (hypertension) As directed. Home BP cuff 1 Each 4 Active Blood Pressure Test Kit-Large (Wireless BP Monitor) kit For home use as directed. 1 Each 08/02/2023 3:09 PM CDT 4 Active citalopram (CELEXA) 20 mg tabletIndication s:Anxiety Take 1 Tablet (20 mg) by mouth once daily in the morning. 90 Tablet 3 03/26/2024 10:10 AM THERAPIST RRT 4 Active hydroCHLOROthiaz eduar 25 mg tabletIndication s:HTN (hypertension) Take 1 Tablet (25 mg) by mouth once daily. 90 Tablet 3 03/26/2024 10:10 AM THERAPIST RRT 4 Active levothyroxine (SYNTHROID) 112 mcg tabletIndication s:Hypothyroidism , unspecified type Take 1 Tablet (112 mcg) by mouth before breakfast. 90 Tablet 3 03/25/2024 1:13 PM THERAPIST RRT 4 Active cholecalciferol (Dialyvite Vitamin D) 5,000 unit capsuleIndicatio ns:Vitamin D deficiency Take 1 Capsule (5,000 units) by mouth once daily. 90 Capsule 1 03/25/2024 1:13 PM THERAPIST RRT 4 Active fish oil-omega-3 fatty acids 300-1,000 mgIndications:Hy perlipidemia with target LDL less than 100 Take 1 Capsule by mouth once daily. 90 Capsule 1 04/06/2024 1:57 PM THERAPIST RRT 4 Active famotidine (PEPCID) 40 mg tablet Take 20 mg by mouth two times daily. Active Active Problems Problem Noted Date Diagnosed Date Pap smear for cervical cancer screening 01/26/20 Overview (01/25/2022): 12/2021 NIL/HPV Negative Provider plan: I would do another speculum exam in 6 months to see if the appearance of the cervix has changed at all. 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 is using decongestant medication and antihistamines but not helping./x 2 months) 11/04/2024 Travel from Last 3 Months Immunizations Immunization Administration Dates Next Due AMB Influenza, IIV4 PF (=>6 mos Flulaval,Fluzone Fluarix)(Flu Clinic Only) 12/19/2016 COVID-19 vaccine (Pfizer-Bio NTech 30mcg/0.3mL) 12YO+ BIVALENT PF, MDV 01/03/2022 COVID-19 vaccine (Pfizer-Bio NTech 30mcg/0.3mL) 12YO+ RIGO-SUCROSE PF, MDV 08/07/2021 COVID-19 vaccine (Pfizer-Bio NTech 30mcg/0.3mL) PF, MDV 05/31/2020,05/10/2020 DTaP 04/14/2008 Hepatitis B (Adult) 04/09/2005,03/23/2004,2002 Hepatitis B (Peds) 04/09/2005,03/23/2004, 003 Hepatitis B, Unspecified 04/09/2005,03/23/2004,1 04/01/2002 Influenza, IIV3 (Age >=3 years) 12/06/2013,12/03,01/25/2012 Influenza, IIV4 11/15/2022,,12/01/2020,2019,10/28/2019,11/13/2018,11/28/2017,1 Influenza, IIV4 (=>6mos) MDV 10/29/2019, 11/13/2018,11/28/2017,2016,12/08/2014 Td, Preservative Free (age > = 7 Years) 02/18/1997 Tdap 08/25/2018,04/14/2008 Zoster (Shingrix-RZV, recombinant) 05/09/2018,,01/28/2018 Family History Medical History Relation Name Comments Hypertension Brother 2 Childhood respiratory disease Daughter 1 Childhood asthma Good Health Daughter 3 Good Health Daughter 4 Cancer Father anal Heart Disease Father aneurysm Hypertension Father Arthritis Mother Cancer-breast Mother Cancer-breast Sister 4 Good Health Son 2 Relation Name Status Comments Brother 1 Alive Brother 2 Daughter 1 Alive Daughter 2 Alive Daughter 3 Daughter 4 Father Alive heart Mother Alive Sister 1 Alive Sister 2 Alive Sister 3 Alive Sister 4 Son 1 Alive Son 2 Social History Tobacco Use Types Packs/Day Years Used Date Smoking Tobacco: Never Smokeless Tobacco: Never Tobacco Cessation:Counseling Given: Yes Alcohol Use Standard Drinks/Week Comments Yes 0 (1 standard drink = 0.6 oz pur e alcohol) 2/week PHQ-2 Answer Date Recorded PHQ-2 TOTAL SCORE 0 08/16/2022 Social Connections Answer Date Recorded Do you often feel lonely or isolated from those around you? 0 09/30/2023 Financial Resource Strain Answer Date R ecorded Difficulty of Paying Living Expenses 3 09/30/2023 Difficulty of Paying Living Expenses Not on file 09/30/2023 Food Insecurity Answer Date Recorded Do you worry your food will run out before you are able to buy more? 1 09/30/2023 Transportation Needs Answer Date Record ed Does lack of transportation keep you from medica l appointments? 1 09/30/2023 Does lack of transportation keep you from work, meetings or getting things that you need? 1 09/30/2023 Housing Stability Answer Date Recorded What is your housing situation today? 1 09/30/2023 Utilities Answer Date Recorded Do you have trouble paying f or utilities (for example, heat, electricity, water, phone)? 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 Not on file Not o n file Obstetrics History Para Term AB IAB SAB Ectopic Multiple Livin g Live Births 3 3 3 0 0 0 0 0 3 Date Outcome GA Total Labor Labor/2nd/3rd Weight Sex Type Anes PTL Beatris A1 A5 Name Clin Term Term Term Last Filed Vital Signs Vital Sign Reading Time Taken Comments Blood Pressure 142/81 11/04/2024 4:08 PM CDT Pulse 72 11/04/2024 4:08 PM CDT Temperature 36.2 C (97.1 F) 11/04/2024 4:08 PM CDT Respiratory Rate 16 11/04/2024 4:08 PM CDT Oxygen Saturation 97% 11/04/2024 4:08 PM CDT Inhaled Oxygen Concentration - - Weight 91.6 kg (202 lb) 09/30/2023 1:01 PM CDT Height 170.8 cm (5' 7.25) 09/30/2023 1:01 PM CD T Body Mass Index 31.4 09/30/2023 1:01 PM CDT Plan of Treatment Upcoming Encounters Date Type Department Care Team (Late st Contact Info) Description 12/14/2024 1:00 PM CDT Appointment [facility] [address] [place] [address] Health Maintenance Due Date Last Done Comments Hepatitis B series for 19+ ( 2 of 3 - 19+ 3-dose series) 05/07/2005 04/09/2005, 04/09/2005, 04/09/2005, Additional history exists Pneumococcal series for age 50+ (1 of 1 - PCV) 2010 Depression screening for age 12+ 08/17/2023 08/16/2022, 12/15/2020, 05/06/2020, Additional history exists Mammogram for age 45-75 04/03/2024 04/03/19 24, 2021, 12/20/2020, Additional history exists BMI (ht and wt on same day) for age 18+ 09/29/2024 09/30/2023, 08/16/2022, 09/15/2021, Additional history exists Influenza Vaccine (#1) 2024 , 12/21/2021, 12/01/2020, Additional history exists Fecal testing sDNA-FIT (Orient guard) for age 45-75 10/19/2025 10/19/2022 Pap test for age 21-65 12/21/2026 , 12/21/2021, 09/17/2018, Additional history exists Tetanus booster 08/25/2028 08/25/2018, 03/22, 02/18/1997 Lipids for age 45-75 10/01/2028 10/02/2023, 02/15/2023, 12/21/2021, Additional history exists RSV vaccine for adults or (1 - 1-dose 75+ series) 12/28/2035 Zoster (shingles) series for age 50+ Completed 05/09/2018, 05/06/2018, 01/28/2018 Hepatitis C screening for ag e 18-79 Completed 11/25/2019 HIV for age 15-65 Completed 08/16/2022 Procedures Procedure Name Priority Date/Time Associated Diagnosis Comments LIPID PANEL W REFLEX MEASURED LDL Routine 10/02/2023 8:46 AM CDT Well woman exam XR MAMMO NEERAJ BILAT SCREEN Routine 04/03/2023 10:57 AM THERAPIST RRT Encounter for screening mammogram for malignant neoplasm of breast SDNA-FIT EXTERNAL (COLOGUARD) Routine 10/19/2022 12:45 PM CDT Colon cancer screening LC HIV-1/O/2, 4TH GENERATION Routine 08/16/2022 1:39 PM CDT Screening for HIV (human immunodeficiency virus) HPV HIGH RISK Routine 12/21/2021 12:40 PM CDT Screening for cervical cancer ANTI HCV Routine 11/25/2019 11:31 AM CDT Need for hepatitis C screening test from Last 3 Months or Most Recently Relevant to Health Maintenance Results * (ABNORMAL) LIPID PANEL W REFLEX MEASURED LDL (10/02/2023 8:46 AM CDT) CHOLESTEROL,TOTAL 235(H) 100 - 199 mg/dL 10/02/2023 9:56 AM T [facility] Comment: Cholesterol, Total Reference Ranges Desirable <200 mg/dL Borderline 200-239 mg/dL High >=240 mg/dL TRIGLYCERIDES 151(H) <150 mg/dL 10/02/2023 9:56 AM [facility] HDL CHOLESTEROL 41 >40 mg/dL 9:56 AM [facility] NON-HDL CHOLESTEROL 194(H) <145 mg/dl 10/02/2023 9:56 AM [facility] CHOL/HDL RATIO 5.73(H) <4.50 10/02/2023 9:56 AM CDT [facility] LDL CHOLESTEROL 164(H) <=130 mg/dL 10/02/2023 9:56 AM CDT [facility] VLDL CHOLESTEROL 30 <=30 mg/dL 10/02/2023 9:56 AM CDT [facility] PROVIDER ORDERED STATUS RANDOM 10/02/2023 9:56 AM CDT [facility] Blood BLOOD SPECIMEN / Unknown Venipuncture / Unknown 10/02/2023 8:46 AM CDT 10/02/2023 8:46 AM CDT us Jacki Triplett MD CHEMISTRY Final Result [facility] [address] [place] [address] * XR MAMMO NEERAJ BILAT SCREEN (04/03/2023 10:57 AM THERAPIST RRT) Anatomical Region Laterality Modality BREASTS, Breast Left, Breast Right Bilateral Mammography Impressions 04/03/2023 11:11 AM THERAPIST RRT There is no radiographic evidence for malignancy. Recommend annual mammograms. MAMMOGRAM ASSESSMENT: ACR 1 Negative PATIENTS: You will also receive a letter with your examination results in an easy to read format. If you have questions about your results, please contact your referring provider. Narrative 04/03/2023 11:11 AM THERAPIST RRT For Patients: As a result of the Century Cures Act, medical imaging exams and procedure reports are released immediately into your electronic medical record. You may view this report before your referring provider. If you have questions, please contact your health care provider. XR MAMMO NEERAJ BILAT SCREEN [[id number]] CLINICAL HISTORY: This is an asymptomatic 62 y.o. patient. INDICATION FOR EXAM: Mammogram Screening. TECHNIQUE: CC & MLO views were obtained. This study was evaluated with the assistance of Computer-Aided Detection. Breast Tomosynthesis was used in interpretation. COMPARISON FILM: Yes 12/27/21 [facility] FINDINGS: The breasts have scattered areas of fibroglandular density. There are no dominant masses, suspicious micro calcifications or areas of architectural distortion. Jacki Triplett MD MAMMO Final Result * SDNA-FIT EXTERNAL (COLOGUARD) (10/19/2022 12:45 PM CDT) NONINV COLON CA DNA+OCC BLD SCRN STL-IMP Negative Negative 10/26/2022 2:47 AM CDT [facility] (CLIA #:[id number]) Comment: NEGATIVE TEST RESULT. A negative Cologuard result indicates a low likelihood that a colorectal cancer (CRC) or advanced adenoma (adenomatous polyps with more advanced pre-malignant features) is present. The chance that a person with a negative Cologuard test has a colorectal cancer is less than 1 in 1500 (negative predictive value >99.9%) or has an advanced adenoma is less than 5.3% (negative predictive value 94.7%). These data are based on a prospective cross-sectional study of 10,000 individuals at average risk for colorectal cancer who were screened with both Cologuard and colonoscopy. (Eric Eastman et al, N Engl J Med 2014;370(14):1301-1982) The normal value (reference range) for this assay is negative. COLOGUARD RE-SCREENING RECOMMENDATION: Periodic colorectal cancer screening is an important part of preventive healthcare for asymptomatic individuals at average risk for colorectal cancer. Following a negative Cologuard result, the [place] Cancer Society and U.S. Multi-Society Task Force screening guidelines recommend a Cologuard re-screening interval of 3 years. References: [place] [employer] Guideline for Colorectal Cancer Screening: https://www.cancer.org/cancer/fikgf-pknuiq-vlotdy/ojskqozma-xfnwvpusr-cnpitqf/ac s-rec ommendations.html.; Kb DK, Johanna CR, Jerrell JeromeK, Colorectal Cancer Screening: Recommendations for Physicians and Patients from the U.S. Multi-Society Task Force on Colorectal Cancer Screening , Am J Gastroenterology 2017; 112:8292-5791. TEST DESCRIPTION: Composite algorithmic analysis of stool DNA-biomarkers with hemoglobin immunoassay. Quantitative values of individual biomarkers are not reportable and are not associated with individual biomarker result reference ranges. Cologuard is intended for colorectal cancer screening of adults of either sex, 45 years or older, who are at average-risk for colorectal cancer (CRC). Cologuard has been approved for use by the U.S. FDA. The performance of Cologuard was established in a cross sectional study of average-risk adults aged 50-84. Cologuard performance in patients ages 45 to 49 years was estimated by sub-group analysis of near-age groups. Colonoscopies performed for a positive result may find as the most clinically significant lesion: colorectal cancer [4.0%], advanced adenoma (including sessile serrated polyps greater than or equal to 1cm diameter) [20%] or non- advanced adenoma [31%]; or no colorectal neoplasia [45%]. These estimates are derived from a prospective cross-sectional screening study of 10,000 individuals at average risk for colorectal cancer who were screened with both Cologuard and colonoscopy. (Eric Ortega al, N Engl J Med 2014;370(14):4361-5822.) Cologuard may produce a false negative or false positive result (no colorectal cancer or precancerous polyp present at colonoscopy follow up). A negative Cologuard test result does not guarantee the absence of CRC or advanced adenoma (pre-cancer). The current Cologuard screening interval is every 3 years. ([place] Cancer Society and U.S. Multi-Society Task Force). Cologuard performance data in a 10,000 patient pivotal study using colonoscopy as the reference method can be accessed at the following location: www.iwi.[employer]/results. Additional description of the Cologuard test process, warnings and precautions can be found at www.[employer].com. Stool specimen (specimen) (Rectum) 10/19/2022 12:45 PM CDT 10/20/2022 5:46 PM CDT us Jacki Triplett MD URINE Final Result [facility] (CLIA #:[id number]) [address] [place] [address], * LC HIV-1/O/2, 4TH GENERATION (08/16/2022 1:39 PM CDT) Pathologist [facility] HIV Scr 4th Gen Non Reactive Non Reactive 08/21/2022 11:08 AM CDT [facility] ([facility]) Comment: HIV Negative HIV-1/HIV-2 antibodies and HIV-1 p24 antigen were NOT detected. There is no laboratory evidence of HIV infection. Blood BLOOD SPECIMEN / Unknown Venipuncture / Unknown 08/16/2022 1:39 PM CDT 08/16/2022 1:41 PM CDT Narrative [facility] ([facility]) - 08/21/2022 11:08 AM CDT Performed at: [address] [place] [id number] Academic Physician: Ed Tolbert MD, Phone: [phone] us Jacki Triplett MD LABORATORY Final Result Performing Organization Address City/[facility]/ZIP Co de Phone Number [facility] ([facility]) [address] [place] [address] * HPV HIGH RISK (12/21/2021 12:40 PM CDT) Pathologist [facility] TYPE 16 Negative Negative 12/25/2021 12:10 PM THERAPIST RRT [facility] TYPE 18 Negative Negative 12/25/2021 12:10 PM THERAPIST RRT [facility] OTHER HIGH RISK TYPES Negative Negative 12/25/2021 12:10 PM THERAPIST RRT [facility] Other (Cervical) Non-Blood / Unknown 12/21/2021 12:40 PM CDT 12/22/2021 8:05 AM CDT Narrative [facility] - 12/25/2021 12:10 PM THERAPIST RRT HPV types 16, 18, 31, 33, 35, 39, 45, 51, 52, 56, 58, 59, 66 and 68 DNA were undetectable or below the pre-set threshold. Methodology: Kitty Parag 4800 HPV Test us Tricia Rodriguez MD MICROBIOLOGY Final Result [facility] [address] [place] [address], [place] * ANTI HCV (11/25/2019 11:31 AM CDT) HEPATITIS C ANTIBODY Non-React ishaan Non-React ishaan 11/25/2019 8:[address] [facility] Comment:Antibodies to HCV no t detected; does not exclude the possibility of exposure to HCV. Blood BLOOD SPECIMEN / Unknown Venipuncture / Unknown 11/25/2019 11:31 AM CDT 11/25/2019 11:32 AM CDT Butch OHARA SEND OUTS Fin al Result [facility] 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
--- OUTSIDE RECORDS SUMMARY | 2024-12-13 18:10 | XMS_ITS | Encounter Summary ---
Author Organization [facility] Address [address] [place] [address] Care Team Providers Care Extern Name Role Phone Toy Rodriguez M.D. Primary Care Provider Encounter Details Date Type Department Care Team (Late st Contact Info) Description 10/02/2024 Results Follow-Up Department of Family Medicine, [facility], in [place], [place] [address] [place] [address] Toy Rodriguez M.D. [address] [place] [address] S-TSH (Thyroid-Stimulating Hormone - Sensitive), Basic Metabolic Panel, Glucose, Fasting, Lipid Panel Social History Tobacco Use Types Packs/Day Years Used Date Smoking Tobacco: Never Smokeless Tobacco: Never Alcohol Use Standard Drinks/Week Comments Yes 0 (1 standard drink = 0.6 oz pur e alcohol) Very little [facility] Utilities Answer Date Recorded In the past 12 months has th e electric, gas, oil, or water company [...] your living situation today? I have a [facility] place to live 06/16/2024 Comments No Sex and Gender Information Value Date Recorded Sex Assigned at Female 11/07/2021 3:35 PM CDT Legal Sex Female 4:58 AM FURNACE LOADER Gender Identity Female 11/07/2021 3:35 PM CDT Sexual Orientation Straight 11/07/2021 3: 38 PM CDT documented as of this encounter Plan of Treatment Upcoming Encounters Date Type Department Care Team (Late st Contact Info) Description 12/14/2024 1:00 PM CDT Appointment Department of Radiology in [place], [place] [address] [address] Mare Ferrara P.A.-CShayla [address] [address] 12/28/2024 1:30 PM FURNACE LOADER Office Visit Department of Otorhinolaryngology in [place], [place] [address] [place] [phone] Mare Ferrara P.A.-CShayla [address] [address] documented as of this encounter Visit Diagnoses Not on filedocumented in this encounter Additional Health Concerns Assessment Noted Time PHQ-9 Depression Total Score: 2 09/08/19 25 8:38 AM CDT documented as of this encounter Care Teams Extern Relationship Specialty Start Date End Date Toy Rodriguez M.D. [address] [place] [address] PCP - General Family Medicine 06/10/24 documented as of this encounter
[2024-12-13 18:21] VITALS: BP 179/78; PULSE 87; RESP 16; TEMP 37.1; O2SAT 95; BMI 31.3
[2024-12-13 18:49] LABS: Appearance Urine Slightly Cloudy (Clear)
--- NOTE | 2024-12-13 18:58 | ED.GENADULT ---
HPI - General Adult General Chief complaint: Urogenital Problems, Female Stated complaint: blood in urine, UTI concerns Time Seen by Provider: 12/13/24 18:45 Source: patient Mode of arrival: ambulatory Limitations: no limitations History of Present Illness HPI narrative: 63-year-old female presenting today with increased urinary frequency, urgency, dysuria hematuria that all started this morning. She denies any fevers, chills, nausea or vomiting. She denies diarrhea or constipation. She describes mild suprapubic discomfort. No flank pain. She states that there is just a reddish discoloration of the urine that clouds the toilet. Related Data Home Medications ?Medication ?Instructions ?Recorded ?Confirmed citalopram 20 mg tablet PO 12/13/24 fluticasone propionate 50 intranasal 12/13/24 mcg/actuation nasal spray,suspension hydrochlorothiazide 25 mg tablet 25 mg PO DAILY 12/13/24 12/13/24 levothyroxine 112 mcg tablet 112 mcg PO DAILY 12/13/24 12/13/24 omega-3 fatty acids-fish oil 300 cap PO 12/13/24 mg-1,000 mg capsule Previous Rx's ?Medication ?Instructions ?Recorded nitrofurantoin 100 mg PO Q12H 5 days #10 caps 12/13/24 monohydrate/macrocrystals 100 mg capsule (Macrobid) Allergies Allergy/AdvReac Type Severity Reaction Status Date / Time No Known Drug Allergies Allergy Verified 12/13/24 18:19 Review of Systems Status of ROS: Reports: 10 or more systems reviewed and unremarkable except as noted in History and below PFSH PFS Social History Smoking Status: Never smoker Do you use any of these nicotine containing products: None Second hand tobacco smoke exposure: No How often do you have a drink containing alcohol: 2-4 times a month How many standard drinks containing alcohol do you have on a typical day: 1 or 2 How often do you have six or more drinks on one occasion: Never AUDIT-C Alcohol total score: 2 Non-prescribed substance use: denies use service: No Exam Narrative: Exam Narrative: Well-nourished well-developed patient in no acute distress. Alert and oriented. Answers questions appropriately. Mood and affect are appropriate. Thoughts are goal oriented and rational. No tangential or magical thinking noted. Patient speaks in full sentences without needing to catch her breath. HEENT: Normocephalic atraumatic. Extraocular muscles are intact. Conjunctivae are moist without any icterus noted. Moist mucous membranes. Abdomen: Soft and nontender nondistended. No CVA tenderness. Skin: Well perfused without any obvious rashes. Const: Vital Signs, click to edit/add: Vital Signs - 24 hr 12/13/24 18:21 Temperature 98.7 F Pulse Rate [Pulse Oximeter] 87 Respiratory Rate 16 Blood Pressure [Ri ght Upper Arm] 179/78 H Pulse Oximetry 95 Oxygen Delivery Me thod Room Air Course Course ED Course: UA grossly positive for signs of infection. Vital Signs Vital signs: Initial Vital Signs Temperature 98.7 F 12/13/24 18:21 Temperature Source Temporal Artery Scan 12/13/24 18:21 Pulse Rate 87 12/13/24 18:21 Respiratory Rate 16 12/13/24 18:21 Blood Pressure 179/78 H 12/13/24 18:21 Blood Pressure Mean 111 H 12/13/24 18:21 Blood Pressure Position Sitting 12/13/24 18:21 Pulse Oximetry 95 12/13/24 18:21 Oxygen Delivery Method Room Air 12/13/24 18:21 Vital Signs Temperature 98.7 F 12/13/24 18:21 Pulse Rate 87 12/13/24 18:21 Respiratory Rate 16 12/13/24 18:21 Blood Pressure 179/78 H 12/13/24 18:21 Pulse Oximetry 95 12/13/24 18:21 Oxygen Delivery Method Room Air 12/13/24 18:21 Temperature 98.7 F 12/13/24 18:21 Pulse Rate 87 12/13/24 18:21 Respiratory Rate 16 12/13/24 18:21 Blood Pressure 179/78 H 12/13/24 18:21 Pulse Oximetry 95 12/13/24 18:21 Oxygen Delivery Method Room Air 12/13/24 18:21 Medical Decision Making MDM Narrative Medical decision making narrative: 63-year-old female with a probable UTI. Hematuria present. Will treat with Macrobid b.i.d. for 5 days. Patient is instructed to follow up with her primary care in 7-14 days have a repeat urinalysis done to make sure that the blood has completely cleared up. Lab Data Lab results reviewed: Yes I reviewed the patient's lab results Labs: Lab Results 12/13/24 Range/Units 18:25 Urine Color Red A (Yellow) Urine Appearance Slightly Cloudy A (Clear) Urine pH 6.0 (5.0-8.5) Ur Specific [place] <= 1.005 (1.000-1.030) Urine Protein 3+ A (Negative) Urine Glucose (UA) Negative (Negative) Urine Ketones Negative (Negative) Urine Blood 3+ A (Negative) Urine Nitrite Negative (Negative) Urine Bilirubin Negative (Negative) Urine Urobilinogen 0.2 (0.2-1.0) Ur Leukocyte Esterase 1+ A (Negative) Discharge Plan Discharge Clinical Impression: Urinary tract infection, Hematuria Patient Disposition: Home, Self-Care Condition: Stable Additional Instructions: Take all antibiotics as prescribed. You should follow-up with your primary care provider in approximately 1-2 weeks to have a repeat urinalysis done. This should be done to make sure that the blood has completely cleared up. If blood remains in the urine, then you will need further evaluation. If after day 5 of antibiotics you still see blood in the urine, you should follow-up with your primary care doctor sooner. Macrobid sent to [facility]. Prescriptions: New nitrofurantoin monohyd/m-cryst [Macrobid] 100 mg capsule 100 mg PO Q12H 5 Days Qty: 10 0RF Rx Instructions: must administer with a meal/food No Action citalopram 20 mg tablet PO hydrochlorothiazide 25 mg tablet 25 mg PO DAILY fluticasone propionate 50 mcg/actuation spray,suspension INTRANASAL Patient Comments: [NO ORIGINAL SIG] levothyroxine 112 mcg tablet 112 mcg PO DAILY omega-3 fatty acids-fish oil 300-1,000 mg capsule PO Follow Up/Referrals: Jacki Triplett MD [Primary Care Provider, Family Practice] Stand Alone Forms: [facility] Info Instructions
== END 2024-12-13 19:16 | disposition home or self-care (01) ==
PROVIDERS: Emergency Provider Family Medicine; PCP Family Medicine
DX: N39.0 Urinary tract infection, site not specified (principal); R31.9 Hematuria, unspecified
CPT/HCPCS: 81001; 87086; 99283; 99284